=== PATIENT | female | born 1970 | race Caucasian/White ===

== ENCOUNTER 2016-12-20 09:32 | Emergency (ER) | payer OTHER ==
[2016-12-20] MEDS ORDERED: Ondansetron INJ* 2 MG/ML VIAL IV ONE (10:11)
[2016-12-20] MEDS ORDERED: Morphine INJ* 4 MG/ML 1 ML SYRINGE IV ONE (10:11)
[2016-12-20] MEDS ORDERED: Ketorolac INJ* 30 MG/ML 1 ML VIAL IV PUSH ONE (10:11)
[2016-12-20] MEDS: NS 0.9% 1000 ML* 2,000 ML IV ONE (10:55)
--- NOTE | 2016-12-20 10:59 | RAD ---
Indication: Right flank pain, diarrhea. CT of the abdomen and pelvis was performed without oral or IV contrast administration. Coronal and sagittal reconstructed images were obtained. Lung bases demonstrate no pleural fluid, nodules or masses. Heart demonstrates no pericardial effusion. The liver is normal in size. No focal lesions or intrahepatic ductal dilatation is noted. The gallbladder demonstrates no calcified gallstones. No pericholecystic fluid or wall thickening is identified. The spleen is normal in size. The pancreas demonstrates no mass or pancreatic ductal dilatation. The common duct is not dilated. No adrenal masses are noted. The kidneys demonstrate no evidence of hydronephrosis or hydroureter. In the right true pelvis there is a calcification which is felt to represent phleboliths and is adjacent to the distal ureter. The urinary bladder is otherwise unremarkable. CT of the pelvis demonstrates aorta and inferior vena cava to be unremarkable with no aneurysmal dilatation. Uterus and ovaries are grossly unremarkable. The urinary bladder is unremarkable. Diverticulosis without definite evidence of diverticulitis is noted. The appendix is visualized and is of normal caliber. Small bowel demonstrates no abnormal dilatation. IMPRESSION: NO EVIDENCE OF OBSTRUCTIVE UROPATHY IS NOTED. THERE IS LIKELY A PHLEBOLITH ADJACENT TO THE URETER DEEP IN THE PELVIS JUST ABOVE THE RIGHT URETEROVESICULAR JUNCTION. NORMAL APPENDIX. NO OTHER MASSES OR FLUID COLLECTIONS ARE IDENTIFIED.
[2016-12-20 11:14] LABS: Hematocrit 40 % (35-47); Hemoglobin 12.9 g/dl (12.0-16.0); Mean Corpuscular HGB Conc 33 g/dl (31-36); Mean Corpuscular Hemoglobin 30 pg (27-31); Mean Corpuscular Volume 91 fL (80-97); Mean Platelet Volume 10 um3 (7.4-10.4); Red Blood Count 4.37 10^6/ul (4.0-5.4); Red Cell Distribution Width 14 % (10.5-15); White Blood Count 12.3 10^3/ul (3.5-10.8)
[2016-12-20 11:34] LABS: Albumin 4.1 g/dL (3.2-5.2); BUN/Creatinine Ratio 10.9 (8-20); C Reactive Protein 2.7 mg/L (< 5.00); Calcium 9.4 mg/dL (8.6-10.3); EGFR African American 83.8 (>60); EGFR Non-African American 65.2 (>60); Globulin 3.1 g/dL (2-4); Potassium 4.1 mmol/L (3.5-5.0); Total Bilirubin 1.9 mg/dL (0.2-1.0); Total Protein 7.2 g/dL (6.4-8.9)
[2016-12-20 11:50] LABS: Urine Bilirubin Negative (Negative); Urine Glucose Negative (Negative); Urine Nitrite Negative (Negative)
[2016-12-20 14:40] VITALS: BP 116/57
--- NOTE | 2016-12-21 23:02 | ED ---
Nenita Alcala SooYoung, scribed for Yuval Smyth MD on 12/20/16 at 1011 . Back Pain - HPI Summary HPI Summary: A 46 y/o F presents to ED with worsening R flank pain onset two days ago. Associated sx: hematuria, watery diarrhea, weakness, dizzy/lightheaded. Denies fever, chills, vomiting. Pain was initially intermittent but has been constant for past two days, described as "twinging." Pt notes she went camping last week , and has been feeling sore since. Denies drinking untreated water. Pert PMHx: urolithiasis, kidney infections, c diff. Pt denies c. diff odor. No recent ABX. PCP is Dr. Johns. SHx: L knee, heart catherization. - History of Current Complaint Chief Complaint: EDFlankPain Stated Complaint: RIGHT FLANK PAIN Time Seen by Provider: 12/20/16 09:38 Hx Obtained From: Patient Hx Last Menstrual Period: just finished 2 days Onset/Duration: Lasting Days - two days ago, Still Present Timing: Constant Back Pain Location: Is Discrete @ - R flank Severity Initially: Moderate Severity Currently: Moderate Pain Intensity: 6 Pain Scale Used: 0-10 Numeric Associated Signs And Symptoms: Positive: Weakness, Other - pos: hematuria, diarrhea, dizziness - Allergies/Home Medications Allergies/Adverse Reactions: Allergies Allergy/AdvReac Type Severity Reaction Status Date / Time Atorvastatin [From Lipitor] Allergy Intermediate heart race Verified 11/08/15 11 :32 Clindamycin Allergy Diarrhea, Verified 11/08/15 11:32 c-diff Shellfish Allergy Allergy Difficulty Verified 11/08/15 11:32 Breathing/Wheezing Iodinated Contrast Media AdvReac Rash And Verified 11/08/15 11:32 [CONTRAST DYE] Itching Statins AdvReac Muscle Ache Verified 11/08/15 11:32 PMH/Surg Hx/FS Hx/Imm Hx Previously Healthy: No Endocrine/Hematology History: Denies: Hx Diabetes Cardiovascular History: Reports: Hx Hypercholesterolemia, Hx Hypertension Denies: Hx Congestive Heart Failure Comment Only: Other Cardiovascular Problems/Disorders - HX OF HEART CATH X 2 YRS AGO Respiratory History: Reports: Hx Asthma, Hx Chronic Bronchitis, Other Respiratory Problems/Disorders - History of Pleurisy GI History: Reports: Hx Gastroesophageal Reflux Disease History: Reports: Hx Kidney Stones Denies: Hx Renal Disease Musculoskeletal History: Reports: Hx Back Problems, Other Musculoskeletal History - bilateral knee pain Neurological History: Reports: Hx Migraine Psychiatric History: Reports: Hx Post Traumatic Stress Disorder Denies: Hx Eating Disorder, Hx of Violent Episodes Against Others - Surgical History Surgery Procedure, Year, and Place: Left Knee Surgery 2002'; Full mouth teeth extraction. HEART CATH - Immunization History Date of Tetanus Vaccine: unable to obtain Infectious Disease History: Reports: Hx Clostridium Difficile Denies: Traveled Outside the [place] in Last 30 Days - Family History Known Family History: Positive: Other - pos: anxiety, schizophrenia; neg: breast CA - Social History Occupation: Unemployed Lives: Alone Alcohol Use: Rare Substance Use Type: Reports: Prescribed Smoking Status (MU): Never Smoked Tobacco Review of Systems Negative: Fever, Chills Negative: Erythema Negative: Sore Throat Negative: Chest Pain Negative: Shortness Of Breath, Cough Positive: Diarrhea. Negative: Abdominal Pain, Vomiting, Nausea Positive: flank pain - R, hematuria. Negative: dysuria Negative: Myalgia, Edema Negative: Rash Neurological: Other - pos: dizziness, lightheadedness Positive: Weakness All Other Systems Reviewed And Are Negative: Yes Physical Exam - Summary Physical Exam Summary: Constitutional: Well-developed, Well-nourished, Alert. (-) Distressed Skin: Warm, Dry HENT: Normocephalic; Atraumatic Eyes: Conjunctiva normal Neck: Musculoskeletal ROM normal neck. (-) JVD, (-) Stridor, (-) Tracheal deviation Cardio: Rhythm regular, rate normal, Heart sounds normal; Intact distal pulses; The pedal pulses are 2+ and symmetric. Radial pulses are 2+ and symmetric. (-) Murmur Pulmonary/Chest wall: Effort normal. (-) Respiratory distress, (-) Wheezes, (-) Rales Abd: Soft, (-) Distension, R CVA TENDERNESS, RLQ TENDERNESS Musculoskeletal: (-) Edema Lymph: (-) Cervical adenopathy Neuro: Alert, Oriented x3 Psych: Mood and affect Normal Triage Information Reviewed: Yes Vital Signs On Initial Exam: Initial Vitals Temp Pulse Resp BP Pulse Ox 96.8 F 59 18 132/80 100 12/20/16 09:33 12/20/16 09:33 12/20/16 09:33 12/20/16 09:33 12/20/16 09:33 Vital Signs Reviewed: Yes Diagnostics - Vital Signs Vital Signs Temp Pulse Resp BP Pulse Ox 12/20/16 09:33 96.8 F 59 18 132/80 100 - Laboratory Result Diagrams: 12/20/16 10:53 12/20/16 10:53 Lab Statement: Any lab studies that have been ordered have been reviewed, and results considered in the medical decision making process. - CT A/P CT CT Interpretation: Positive (See Comments) - IMPRESSION: NO EVIDENCE OF OBSTRUCTIVE UROPATHY IS NOTED. THERE IS LIKELY A PHLEBOLITH ADJACENT TO THE URETER DEEP IN THE PELVIS JUST ABOVE THE RIGHT URETEROVESICULAR JUNCTION. NORMAL APPENDIX. NO OTHER MASSES OR FLUID COLLECTIONS ARE IDENTIFIED. CT Interpretation Completed By: Radiologist Re-Evaluation - Re-Evaluation 1 Re-Evaluation Time: 13:56 Change: Improved Comment: Discussing results with pt. Pt still has mild tenderness to RLQ. Will PO challenge before D/C. Back Pain Course/Dx - Course Course Of Treatment: Pt is a 46 y/o F presenting with worsening R flank pain onset two days ago. Associated sx: hematuria, watery diarrhea, weakness, dizzy/ lightheaded. Denies fever, chills, vomiting. Pain was initially intermittent but has been constant for past two days, described as "twinging." Pert PMHx: kidney stones, kidney infections, c diff. Pt denies c. diff odor. Pt given fluids, Toradol, Zofran, morphine in ED. Labs results are WNL except for elevated WBCs and Total Bilirubin. UA results are WNL with specific gravity of 1.005. A/P CT shows "NO EVIDENCE OF OBSTRUCTIVE UROPATHY IS NOTED. THERE IS LIKELY A PHLEBOLITH ADJACENT TO THE URETER DEEP IN THE PELVIS JUST ABOVE THE RIGHT URETEROVESICULAR JUNCTION. NORMAL APPENDIX. NO OTHER MASSES OR FLUID COLLECTIONS ARE IDENTIFIED.". No signs of urologic obstruction. Pt tolerated PO challenge. Will D/C home with tramadol. - Diagnoses Differential Diagnosis/HQI/PQRI: Positive: Other - kidney stone vs. pain from viral diarrhea, possibly muscle strain Provider Diagnoses: Diarrhea, Right flank pain Discharge - Discharge Plan Condition: Stable Disposition: HOME Prescriptions: traMADol TAB* [Ultram*] 25 mg PO Q6HR PRN #12 tab MDD 4 PRN Reason: Pain - Moderate To Severe Patient Education Materials: Flank Pain (ED), Acute Diarrhea (ED), Tramadol ( By mouth) Referrals: Radhika Johns MD [Primary Care Provider] - 3 Days (Follow up with your primary care provider within the next few days.) Additional Instructions: Follow up with your primary care provider within the next few days. Return to the emergency department for changing or worsening or persistent symptoms The documentation as recorded by the Nenita ramirez SooYoung accurately reflects the service I personally performed and the decisions made by , Yuval Smyth MD.
== END 2016-12-20 14:39 | disposition home or self-care (01) ==
LOC: ED 09:32
DX: R10.84 Generalized abdominal pain (principal); R53.1 Weakness; R31.9 Hematuria, unspecified; R19.7 Diarrhea, unspecified; R42 Dizziness and giddiness
CPT/HCPCS: 36415; 74176; 80053; 81003; 83605; 83690; 85025; 86140; 96374; 96375; 99283; J1885; J2270; J2405

== ENCOUNTER 2017-06-07 11:29 | Emergency (ER) | payer OTHER ==
[2017-06-07] MEDS ORDERED: NS 0.9% 1000 ML* 1,000 ML IV ONE (12:39)
[2017-06-07 13:19] LABS: Hematocrit 38 % (35-47); Mean Corpuscular HGB Conc 34 g/dl (31-36); Mean Corpuscular Hemoglobin 31 pg (27-31); Mean Corpuscular Volume 90 fL (80-97); Mean Platelet Volume 9 um3 (7.4-10.4); Red Blood Count 4.22 10^6/ul (4.0-5.4); Red Cell Distribution Width 14 % (10.5-15); White Blood Count 12.7 10^3/ul (3.5-10.8)
[2017-06-07 13:35] LABS: BUN/Creatinine Ratio 14.8 (8-20); Calcium 9.6 mg/dL (8.6-10.3); EGFR African American 88.2 (>60); EGFR Non-African American 68.6 (>60); Globulin 2.7 g/dL (2-4); Potassium 4.1 mmol/L (3.5-5.0); Total Bilirubin 0.9 mg/dL (0.2-1.0); Total Protein 6.7 g/dL (6.4-8.9)
--- NOTE | 2017-06-07 13:35 | RAD ---
Indication: Chest pain. 2 views of the chest including dual energy PA views demonstrate no mediastinal shift. Heart is of normal size and configuration. Lung portillo demonstrate no pleural fluid, pneumonia or pneumothorax. IMPRESSION: No active cardiopulmonary disease is noted.
[2017-06-07 14:18] LABS: TSH (Thyroid Stimulating Horm) 2.33 mcIU/mL (0.34-5.60)
[2017-06-07 15:16] LABS: Urine Bacteria 1+ (Absent); Urine Bilirubin Negative (Negative); Urine Glucose Negative (Negative); Urine Nitrite Positive (Negative)
[2017-06-07 15:55] VITALS: BP 132/78
--- NOTE | 2017-06-09 08:06 | ED ---
Krzysztof Alcala Angela, scribed for Edwardo Saha MD on 06/07/17 at 1243 . HPI Chest Pain - HPI Summary HPI Summary: This pt is a 46 y/o female presenting to [facility] c/o chest pain that began last night. She reports some SOB and productive cough. Pt states she was recently diagnosed with bronchitis. Pt additionally notes her blood pressure was elevated last night. She is on anti-hypertensive medications. She denies nausea , vomiting, fever (today). PMHx includes heat cath (2 years ago), asthma, chronic bronchitis, GERD. - History of Current Complaint Chief Complaint: EDChestWallPain Time Seen by Provider: 06/07/17 11:41 Hx Obtained From: Patient Hx Last Menstrual Period: just finished 2 days Onset/Duration: Started Hours Ago, Still Present Timing: Lasting Hours Current Severity: Moderate Pain Intensity: 5 Pain Scale Used: 0-10 Numeric Chest Pain Location: Diffuse Chest Pain Radiates: No Character: Cough, Productive Associated Signs and Symptoms: Positive: Chest Pain, Shortness of Breath, Cough - Allergy/Home Medications Allergies/Adverse Reactions: Allergies Allergy/AdvReac Type Severity Reaction Status Date / Time Atorvastatin [From Lipitor] Allergy Intermediate heart race Verified 06/07/17 11 :32 Clindamycin Allergy Diarrhea, Verified 06/07/17 11:32 c-diff Shellfish Allergy Allergy Difficulty Verified 06/07/17 11:32 Breathing/Wheezing Iodinated Contrast Media AdvReac Rash And Verified 06/07/17 11:32 [CONTRAST DYE] Itching Statins AdvReac Muscle Ache Verified 06/07/17 11:32 Home Medications: Home Medications Cholecalciferol [Vitamin D3 Gummies] 2,000 unit PO DAILY 06/07/17 [History Confirmed 06/07/17] Levothyroxine TAB* [Synthroid TAB*] 50 mcg PO QAM 06/07/17 [History Confirmed ] PMH/Surg Hx/FS Hx/Imm Hx Endocrine/Hematology History: Denies: Hx Diabetes Cardiovascular History: Reports: Hx Hypercholesterolemia, Hx Hypertension Denies: Hx Congestive Heart Failure Comment Only: Other Cardiovascular Problems/Disorders - HX OF HEART CATH X 2 YRS AGO Respiratory History: Reports: Hx Asthma, Hx Chronic Bronchitis, Other Respiratory Problems/Disorders - History of Pleurisy GI History: Reports: Hx Gastroesophageal Reflux Disease History: Reports: Hx Kidney Stones Denies: Hx Renal Disease Musculoskeletal History: Reports: Hx Back Problems, Other Musculoskeletal History - bilateral knee pain Neurological History: Reports: Hx Migraine Psychiatric History: Reports: Hx Post Traumatic Stress Disorder Denies: Hx Eating Disorder, Hx of Violent Episodes Against Others - Surgical History Surgery Procedure, Year, and Place: Left Knee Surgery 2002'; Full mouth teeth extraction. HEART CATH - Immunization History Date of Tetanus Vaccine: unable to obtain Infectious Disease History: No Infectious Disease History: Reports: Hx Clostridium Difficile Denies: Traveled Outside the [place] in Last 30 Days - Family History Known Family History: Positive: Other - pos: anxiety, schizophrenia; neg: breast CA - Social History Alcohol Use: Rare Substance Use Type: Reports: Prescribed Substance Use Comment - Amount & Last Used: states eats food with hemp in it Smoking Status (MU): Never Smoked Tobacco Review of Systems Constitutional: Other - elevated BP last night Negative: Fever, Chills Eyes: Negative Positive: Chest Pain Positive: Shortness Of Breath, Cough Negative: Vomiting, Nausea Musculoskeletal: Negative Skin: Negative Neurological: Negative All Other Systems Reviewed And Are Negative: Yes Physical Exam - Summary Physical Exam Summary: VITAL SIGNS: Reviewed. GENERAL: Patient is a well-developed and nourished female who is lying comfortable in the stretcher. Patient is not in any acute respiratory distress. HEAD AND FACE: No signs of trauma. No ecchymosis, hematomas or skull depressions. No sinus tenderness. EYES: PERRLA, EOMI x 2, No injected conjunctiva, no nystagmus. EARS: Hearing grossly intact. Ear canals and tympanic membranes are within normal limits. MOUTH: Oropharynx within normal limits. Pt has dry mouth. NECK: Supple, trachea is midline, no adenopathy, no JVD, no carotid bruit, no c- spine tenderness, neck with full ROM. CHEST: Symmetric, no tenderness at palpation LUNGS: Some coarse breath sounds bilaterally. CVS: Regular rate and rhythm, S1 and S2 present, no murmurs or gallops appreciated. ABDOMEN: Soft, non-tender. No signs of distention. No rebound no guarding, and no masses palpated. Bowel sounds are normal. EXTREMITIES: FROM in all major joints, no edema, no cyanosis or clubbing. NEURO: Alert and oriented x 3. No acute neurological deficits. Speech is normal and follows commands. SKIN: Dry and warm Triage Information Reviewed: Yes Vital Signs On Initial Exam: Initial Vitals Temp Pulse Resp BP Pulse Ox 96.6 F 58 20 147/85 100 06/07/17 11:32 06/07/17 11:32 06/07/17 11:32 06/07/17 11:32 06/07/17 11:32 Vital Signs Reviewed: Yes Diagnostics - Vital Signs Vital Signs Temp Pulse Resp BP Pulse Ox 06/07/17 11:32 96.6 F 58 20 147/85 100 - Laboratory Lab Results: Lab Results 06/07/17 06/07/17 06/07/17 Range/Units 13:10 13:10 13:10 WBC 12.7 H (3.5-10.8) 10^3/ul RBC 4.22 (4.0-5.4) 10^6/ul Hgb 13.0 (12.0-16.0) g/dl Hct 38 (35-47) % MCV 90 (80-97) fL MCH 31 (27-31) pg MCHC 34 (31-36) g/dl RDW 14 (10.5-15) % Plt Count 292 (150-450) 10^3/ul MPV 9 (7.4-10.4) um3 Neut % (Auto) 64.3 (38-83) % Lymph % (Auto) 24.9 L (25-47) % Arthur % (Auto) 6.6 (1-9) % Eos % (Auto) 3.3 (0-6) % Baso % (Auto) 0.9 (0-2) % Absolute Neuts (auto) 8.2 H (1.5-7.7) 10^3/ul Absolute Lymphs (auto) 3.2 (1.0-4.8) 10^3/ul Absolute Monos (auto) 0.8 (0-0.8) 10^3/ul Absolute Eos (auto) 0.4 (0-0.6) 10^3/ul Absolute Basos (auto) 0.1 (0-0.2) 10^3/ul Absolute Nucleated RBC 0 10^3/ul Nucleated RBC % 0 Sodium 136 (133-145) mmol/L Potassium 4.1 (3.5-5.0) mmol/L Chloride 105 (101-111) mmol/L Carbon Dioxide 26 (22-32) mmol/L Anion Gap 5 (2-11) mmol/L BUN 13 (6-24) mg/dL Creatinine 0.88 (0.51-0.95) mg/dL Est GFR ( Amer) 88.2 (>60) Est GFR (Non-Af Amer) 68.6 (>60) BUN/Creatinine Ratio 14.8 (8-20) Glucose 104 H (70-100) mg/dL Calcium 9.6 (8.6-10.3) mg/dL Total Bilirubin 0.90 (0.2-1.0) mg/dL AST 17 (13-39) U/L ALT 23 (7-52) U/L Alkaline Phosphatase 48 (34-104) U/L Troponin I 0.00 (<0.04) ng/mL B-Natriuretic Peptide 65 ( - 100) pg/mL Total Protein 6.7 (6.4-8.9) g/dL Albumin 4.0 (3.2-5.2) g/dL Globulin 2.7 (2-4) g/dL Albumin/Globulin Ratio 1.5 (1-3) TSH 2.33 (0.34-5.60) mcIU/mL Urine Color Urine Appearance Urine pH (5-9) Ur Specific [place] (1.010-1.030) Urine Protein (Negative) Urine Ketones (Negative) Urine Blood (Negative) Urine Nitrate (Negative) Urine Bilirubin (Negative) Urine Urobilinogen (Negative) Ur Leukocyte Esterase (Negative) Urine WBC (Auto) (Absent) Urine RBC (Auto) (Absent) Ur Squamous Epith Cells (Absent) Urine Bacteria (Absent) Urine Glucose (Negative) Influenza A (Rapid) (Negative) Influenza B (Rapid) (Negative) 06/07/17 06/07/17 06/07/17 Range/Units 14:58 15:00 15:03 WBC (3.5-10.8) 10^3/ul RBC (4.0-5.4) 10^6/ul Hgb (12.0-16.0) g/dl Hct (35-47) % MCV (80-97) fL MCH (27-31) pg MCHC (31-36) g/dl RDW (10.5-15) % Plt Count (150-450) 10^3/ul MPV (7.4-10.4) um3 Neut % (Auto) (38-83) % Lymph % (Auto) (25-47) % Arthur % (Auto) (1-9) % Eos % (Auto) (0-6) % Baso % (Auto) (0-2) % Absolute Neuts (auto) (1.5-7.7) 10^3/ul Absolute Lymphs (auto) (1.0-4.8) 10^3/ul Absolute Monos (auto) (0-0.8) 10^3/ul Absolute Eos (auto) (0-0.6) 10^3/ul Absolute Basos (auto) (0-0.2) 10^3/ul Absolute Nucleated RBC 10^3/ul Nucleated RBC % Sodium (133-145) mmol/L Potassium (3.5-5.0) mmol/L Chloride (101-111) mmol/L Carbon Dioxide (22-32) mmol/L Anion Gap (2-11) mmol/L BUN (6-24) mg/dL Creatinine (0.51-0.95) mg/dL Est GFR ( Amer) (>60) Est GFR (Non-Af Amer) (>60) BUN/Creatinine Ratio (8-20) Glucose (70-100) mg/dL Calcium (8.6-10.3) mg/dL Total Bilirubin (0.2-1.0) mg/dL AST (13-39) U/L ALT (7-52) U/L Alkaline Phosphatase (34-104) U/L Troponin I 0.00 (<0.04) ng/mL B-Natriuretic Peptide ( - 100) pg/mL Total Protein (6.4-8.9) g/dL Albumin (3.2-5.2) g/dL Globulin (2-4) g/dL Albumin/Globulin Ratio (1-3) TSH (0.34-5.60) mcIU/mL Urine Color Yellow Urine Appearance Clear Urine pH 5.0 (5-9) Ur Specific [place] 1.010 (1.010-1.030) Urine Protein Negative (Negative) Urine Ketones Trace H (Negative) Urine Blood Negative (Negative) Urine Nitrate Positive H (Negative) Urine Bilirubin Negative (Negative) Urine Urobilinogen Negative (Negative) Ur Leukocyte Esterase Trace H (Negative) Urine WBC (Auto) Trace(0-5/hpf) (Absent) Urine RBC (Auto) Trace(0-2/hpf) (Absent) Ur Squamous Epith Cells Present H (Absent) Urine Bacteria 1+ H (Absent) Urine Glucose Negative (Negative) Influenza A (Rapid) Negative (Negative) Influenza B (Rapid) Negative (Negative) Result Diagrams: 06/07/17 13:10 06/07/17 13:10 Lab Statement: Any lab studies that have been ordered have been reviewed, and results considered in the medical decision making process. - Radiology Chest XR Xray Interpretation: No Acute Changes - IMPRESSION: No active cardiopulmonary disease is noted. ED physician has reviewed this radiology report and agrees. Radiology Interpretation Completed By: Radiologist - EKG 1139 Cardiac Rate: Bradycardia EKG Rhythm: Sinus Rhythm - at 57 bpm EKG Interpretation: No ST elevation EKG Comparison: No Significant Change - similar to previous EKG done on . Chest Pain Course/Dx - Course Assessment/Plan: This pt is a 46 y/o female presenting to [facility] c/o chest pain that began last night. She reports some SOB and productive cough. Pt states she was recently diagnosed with bronchitis. Pt additionally notes her blood pressure was elevated last night. She is on anti-hypertensive medications. She denies nausea, vomiting, fever (today). PMHx includes heat cath (2 years ago), asthma, chronic bronchitis, GERD. Test results without any significant abnormalities except for WBC of 12.7. Urinalysis is positive for a UTI. Chest XR shows no active cardiopulmonary disease is noted. In the ED course the pt was given IV fluids and her symptoms improved. She will be discharged home with prescription for Ciprofloxacin and will follow up from her PCP. Pt is hemodynamically stable, alert and oriented x3. - Chest Pain Differential Diagnosis/HQI/PQRI: Acute MO, Angina, CHF, Chest Wall, GI Disease, Lower Respiratory Infection - Diagnoses Provider Diagnoses: Atypical chest pain Discharge - Discharge Plan Condition: Stable Disposition: HOME Prescriptions: Ciprofloxacin TAB* [Cipro 500 MG TAB*] 500 mg PO BID #6 tab Patient Education Materials: Chest Pain (ED), Urinary Tract Infection in Women (ED) Referrals: Radhika Johns MD [Primary Care Provider] - Additional Instructions: Please follow up with your primary care provider. RETURN TO THE ED FOR ANY WORSENING OR NEW SYMPTOMS. The documentation as recorded by the Krzysztof ramirez Angela accurately reflects the service I personally performed and the decisions made by me, Edwardo Saha MD.
--- NOTE | 2017-06-10 08:35 | ED ---
Progress - Progress Note Progress Note: Pt's urine cx reveals e. coli >100,000 which is sens to cipro - pt was d/c'd on cipro - no change at this time. Course/Dx - Diagnoses Provider Diagnoses: Atypical chest pain
== END 2017-06-07 15:55 | disposition home or self-care (01) ==
LOC: ED 11:29
DX: R07.89 Other chest pain (principal)
CPT/HCPCS: 36415; 71020; 80053; 81003; 81015; 83880; 84443; 84484; 85025; 87077; 87086; 87186; 87502; 93005; 99282

== ENCOUNTER 2017-07-30 17:35 | Emergency (ER) | payer OTHER ==
[2017-07-30] MEDS ORDERED: Tetan/Diph/Pertus SYR(Tdap)* 0.5 ML SYR(BOOSTRIX) use SYR IM ONE (18:53)
--- NOTE | 2017-07-30 18:53 | ED ---
Laceration/Wound HPI - HPI Summary HPI Summary: 38-year-old female presents with right thigh laceration today. she states she was using a saw and it slipped and hit her right thigh. there is no active bleeding in the area. She states she doesn't know last tetanus was. She placed a bandage on the area. She denies any other injury. Denies any foreign body in the wound. She denies any pain currently. - History of Current Complaint Stated Complaint: RT LEG LACERATION Time Seen by Provider: 07/30/17 17:58 Hx Last Menstrual Period: just finished 2 days Pain Intensity: 2 - Allergy/Home Medications Allergies/Adverse Reactions: Allergies Allergy/AdvReac Type Severity Reaction Status Date / Time Atorvastatin [From Lipitor] Allergy Intermediate heart race Verified 06/07/17 11 :32 Clindamycin Allergy Diarrhea, Verified 06/07/17 11:32 c-diff Shellfish Allergy Allergy Difficulty Verified 06/07/17 11:32 Breathing/Wheezing Iodinated Contrast Media AdvReac Rash And Verified 06/07/17 11:32 [CONTRAST DYE] Itching Statins AdvReac Muscle Ache Verified 06/07/17 11:32 PMH/Surg Hx/FS Hx/Imm Hx Endocrine/Hematology History: Denies: Hx Diabetes Cardiovascular History: Reports: Hx Hypercholesterolemia, Hx Hypertension Denies: Hx Congestive Heart Failure Comment Only: Other Cardiovascular Problems/Disorders - HX OF HEART CATH X 2 YRS AGO Respiratory History: Reports: Hx Asthma, Hx Chronic Bronchitis, Other Respiratory Problems/Disorders - History of Pleurisy GI History: Reports: Hx Gastroesophageal Reflux Disease History: Reports: Hx Kidney Stones Denies: Hx Renal Disease Musculoskeletal History: Reports: Hx Back Problems, Other Musculoskeletal History - bilateral knee pain Neurological History: Reports: Hx Migraine Psychiatric History: Reports: Hx Post Traumatic Stress Disorder Denies: Hx Eating Disorder, Hx of Violent Episodes Against Others - Surgical History Surgery Procedure, Year, and Place: Left Knee Surgery 2002'; Full mouth teeth extraction. HEART CATH - Immunization History Date of Tetanus Vaccine: unable to obtain Infectious Disease History: No Infectious Disease History: Reports: Hx Clostridium Difficile Denies: Traveled Outside the [place] in Last 30 Days - Family History Known Family History: Positive: Other - pos: anxiety, schizophrenia; neg: breast CA - Social History Alcohol Use: Rare Substance Use Type: Reports: None, Prescribed Substance Use Comment - Amount & Last Used: states eats food with hemp in it Smoking Status (MU): Never Smoked Tobacco Review of Systems Negative: Fever Negative: Chest Pain Negative: Shortness Of Breath Positive: Other - right thigh laceration All Other Systems Reviewed And Are Negative: Yes Physical Exam Triage Information Reviewed: Yes Vital Signs On Initial Exam: Initial Vitals Temp Pulse Resp BP Pulse Ox 96.9 F 67 17 148/83 99 07/30/17 17:47 07/30/17 17:47 07/30/17 17:47 07/30/17 17:47 07/30/17 17:47 Vital Signs Reviewed: Yes Appearance: Positive: Well-Appearing Skin: Positive: Warm, Dry, Other - 1cm superficial laceration on right thigh Head/Face: Positive: Normal Head/Face Inspection Eyes: Positive: Normal, Conjunctiva Clear Respiratory/Lung Sounds: Positive: Clear to Auscultation, Breath Sounds Present Cardiovascular: Positive: Normal, RRR Musculoskeletal: Positive: Strength/ROM Intact - right leg, Other - good pulses , sensation grossly intact Neurological: Positive: Normal Psychiatric: Positive: Normal Procedures - Laceration/Wound Repair 1 Location: Other - right thigh Description: Linear Length, Depth and Shape: 1cm superficial Irrigated w/ Saline (ccs): 40 Laceration/Wound Explored: clean, no foreign body removed Closure: Skin Adhesive, SteriStrips Diagnostics - Vital Signs Vital Signs Temp Pulse Resp BP Pulse Ox 07/30/17 17:47 96.9 F 67 17 148/83 99 - Laboratory Lab Statement: Any lab studies that have been ordered have been reviewed, and results considered in the medical decision making process. Laceration Repair Course/Dx - Course Course Of Treatment: 38-year-old female presents with right thigh laceration today. she states she was using a saw and it slipped and hit her right thigh. there is no active bleeding in the area. She states she doesn't know last tetanus was. She placed a bandage on the area. She denies any other injury. Denies any foreign body in the wound. She denies any pain currently. on exam has 1cm superficial laceration that placed glue and steri strip. gave tetanus. patient understand and agrees with plan. - Differential Dx Differental Diagnoses: Abrasion, Avulsion, Laceration - Clinical Impression Provider Diagnoses: Laceration of right thigh Discharge - Discharge Plan Condition: Good Disposition: HOME Patient Education Materials: Skin Adhesive Care (ED) Referrals: Radhika Johns MD [Primary Care Provider] - Additional Instructions: Place ice on area Take Tylenol for pain as needed every 6 hours Keep dry for 24 hours Glue will fall off on own Avoid scrubbing area Use sunscreen on area after laceration has healed Return to ED if develop any signs of infection or any new or worsening symptoms
[2017-07-30 19:12] VITALS: BP 135/83
== END 2017-07-30 19:11 | disposition home or self-care (01) ==
LOC: ED 17:35
DX: S71.111A Laceration without foreign body, right thigh, initial encounter (principal); W26.8XXA Contact with other sharp object(s), not elsewhere classified, initial encounter; Y92.9 Unspecified place or not applicable; Z23 Encounter for immunization; Z88.8 Allergy status to other drugs, medicaments and biological substances; Z88.3 Allergy status to other anti-infective agents; Z91.041 Radiographic dye allergy status
CPT/HCPCS: 12001; 90471; 90715; 99282

== ENCOUNTER 2018-04-03 14:11 | Emergency (ER) | payer OTHER ==
[2018-04-03 14:45] VITALS: BP 130/78
--- NOTE | 2018-04-03 16:45 | UC ---
Ear Complaint HPI - HPI Summary HPI Summary: 47 y/o female presents to the urgent care c/o pt c/o rt ear pain, this started 3 days ago. pt has been treating it as an allergy issue and is not responding. pt states she has also developed a cough off and on for 1 week. - History of Current Complaint Chief Complaint: UCEar Stated Complaint: EAR PAIN Time Seen by Provider: 04/03/18 15:49 Hx Obtained From: Patient Hx Last Menstrual Period: just finished 2 days Pain Intensity: 5 - Allergies/Home Medications Allergies/Adverse Reactions: Allergies Allergy/AdvReac Type Severity Reaction Status Date / Time atorvastatin [From Lipitor] Allergy Tachycardia Verified 04/03/18 14:46 clindamycin Allergy Diarrhea Verified 04/03/18 14:46 Iodinated Contrast- Oral and Allergy Rash And Verified 04/03/18 14:46 IV Dye Itching shellfish derived Allergy Difficulty Verified 04/03/18 14:46 Breathing Qhxypfs-Vva-Hnt Reductase Allergy Muscle Ache Verified 04/03/18 14:46 Inhibitor Home Medications: Home Medications Allopurinol TAB* [Zyloprim 100 MG TAB*] 100 mg PO DAILY 04/03/18 [History Confirmed 04/03/18] Fluticasone NASAL SPRAY 50MCG* [Flonase NASAL SPRAY 50MCG*] 2 spray BOTH NARES DAILY 04/03/18 [History Confirmed 04/03/18] Ibuprofen 400 mg PO 04/03/18 [History] Potassium Citrate [Urocit-K] 1,080 mg PO 04/03/18 [History] hydroCHLOROthiazide [Hydrochlorothiazide] 12.5 mg PO 04/03/18 [History] PMH/Surg Hx/FS Hx/Imm Hx - Surgical History Surgical History: Yes Surgery Procedure, Year, and Place: Left Knee Surgery 2002'; Full mouth teeth extraction. 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 2- Otalgia Discharge - Sign-Out/Discharge Documenting (check all that apply): Patient Departure All imaging exams completed and their final reports reviewed: No Studies - Discharge Plan Condition: Stable Disposition: HOME Prescriptions: Neomyc/Polym/HC 1% OTIC SUSP* [Cortisporin Otic Susp 1%*] 4 drop RIGHT EAR QID # 1 btl Patient Education Materials: Otitis Externa (ED) Referrals: Radhika Johns MD [Primary Care Provider] - 3 Days Additional Instructions: 1-Please apply otic antibiotic on your Rt ear as directed. 2-Continue taking ibuprofen PO after meals for pain. 3-If symptoms do not improve or worsen please f/u with your PCP in 3 days or return to the urgent care for further evaluation and treatment. - Billing Disposition and Condition Condition: STABLE Disposition: Home
== END 2018-04-03 16:45 | disposition home or self-care (01) ==
LOC: UCEAST 14:11
DX: H60.501 Unspecified acute noninfective otitis externa, right ear (principal); R05 Cough; Z88.8 Allergy status to other drugs, medicaments and biological substances; Z88.1 Allergy status to other antibiotic agents; Z91.041 Radiographic dye allergy status; Z91.013 Allergy to seafood
CPT/HCPCS: 99212; G0463

== ENCOUNTER 2018-05-10 13:35 | Emergency (ER) | payer OTHER ==
[2018-05-10] MEDS ORDERED: NS 0.9% 1000 ML* 1,000 ML IV ONE (15:37)
[2018-05-10] MEDS ORDERED: Ketorolac INJ* 30 MG/ML 1 ML VIAL IV PUSH ONE (15:42)
--- NOTE | 2018-05-10 15:54 | ED ---
GI/ HPI - HPI Summary HPI Summary: Patient is a 47 y/o F w/ c/o right flank and RUQ abdominal pain onsetting last night. PMHx of kidney stones is noted, present episode feels like previous occurrences of kidney stones. Nausea endorsed, vomiting is denied. Hematuria is reported but patient notes that she is on her period. Patient took tramadol last night which alleviated pain slightly. Pain is described as a "spasm". Patient denies fever, chills, OCHOA, ear pain, sore throat, blurred vision, double vision, neck pain, CP, SOB, back pain, dysuria, blood in the stool, constipation , edema, bruising, rashes. No anxiety and depression reported. On triage, pain is rated 5/10, nothing is noted to aggravate/alleviate Sx. Home medications and allergies are reviewed. - History of Current Complaint Chief Complaint: EDFlankPain Stated Complaint: RT MARGIN ANALYST FLANK PAIN Hx Obtained From: Patient Hx Last Menstrual Period: just finished 2 days Onset/Duration: Started Days Ago - onset last night, Still Present Timing: Constant, Lasting Days - onset last night Severity: Moderate - 5/10 Current Severity: Moderate - 5/10 Pain Intensity: 5 Location of Pain: RUQ, Flank - right Pain Characteristics: Other: - spasms Associated Signs and Symptoms: Positive: Nausea, Hematuria - patient is on her period, Flank Pain - right, Abdominal Pain - right, Other: - denies OCHOA, ear pain , sore throat, blurred vision, double vision, neck pain, SOB, edema, rashes. No anxiety and depression reported.. Negative: Back Pain, Vomiting, Bruising, Constipation, Blood w/Stool, Fever, Dysuria, Chills, Chest Pain Aggravating Factor(s): Nothing Alleviating Factor(s): Medication - tramadol - Allergy/Home Medications Allergies/Adverse Reactions: Allergies Allergy/AdvReac Type Severity Reaction Status Date / Time atorvastatin [From Lipitor] Allergy Tachycardia Verified 04/03/18 14:46 clindamycin Allergy Diarrhea Verified 04/03/18 14:46 Iodinated Contrast- Oral and Allergy Rash And Verified 04/03/18 14:46 IV Dye Itching shellfish derived Allergy Difficulty Verified 04/03/18 14:46 Breathing Llvgnpp-Vdg-Ltq Reductase Allergy Muscle Ache Verified 04/03/18 14:46 Inhibitor PMH/Surg Hx/FS Hx/Imm Hx Endocrine/Hematology History: Denies: Hx Diabetes Cardiovascular History: Reports: Hx Hypercholesterolemia, Hx Hypertension Denies: Hx Congestive Heart Failure Comment Only: Other Cardiovascular Problems/Disorders - HX OF HEART CATH X 2 YRS AGO Respiratory History: Reports: Hx Asthma, Hx Chronic Bronchitis, Other Respiratory Problems/Disorders - History of Pleurisy GI History: Reports: Hx Gastroesophageal Reflux Disease History: Reports: Hx Kidney Stones Denies: Hx Renal Disease Musculoskeletal History: Reports: Hx Back Problems, Other Musculoskeletal History - bilateral knee pain Neurological History: Reports: Hx Migraine Psychiatric History: Reports: Hx Post Traumatic Stress Disorder Denies: Hx Eating Disorder, Hx of Violent Episodes Against Others - Surgical History Surgery Procedure, Year, and Place: Left Knee Surgery 2002'; Full mouth teeth extraction. HEART CATH - Immunization History Date of Tetanus Vaccine: unable to obtain Immunizations Up to Date: Yes Infectious Disease History: No Infectious Disease History: Reports: Hx Clostridium Difficile Denies: Traveled Outside the [place] in Last 30 Days - Family History Known Family History: Positive: Cardiac Disease, Hypertension, Diabetes, Other Family History: pos: anxiety, schizophrenia - Social History Alcohol Use: Rare Substance Use Type: Reports: None Substance Use Comment - Amount & Last Used: states eats food with hemp in it Smoking Status (MU): Never Smoked Tobacco Review of Systems Negative: Fever, Chills Positive: Other - NEGATIVE: double vision . Negative: Blurred Vision Negative: Sore Throat, Ear Ache Negative: Chest Pain Negative: Shortness Of Breath Positive: Abdominal Pain, Nausea. Negative: Vomiting Positive: flank pain, hematuria - patient on her period , other - NEGATIVE: blood in stool, constipation . Negative: dysuria Positive: Other - NEGATIVE: back/neck pain . Negative: Edema Negative: Rash, Bruising Negative: Headache Negative: Anxious, Depressed All Other Systems Reviewed And Are Negative: No Physical Exam - Summary Physical Exam Summary: Appearance: Alert, conversive, nontoxic appearing Skin: Warm, dry, no mottling, no rashes, no contusions HEENT: EOMI, PERRL, moist mucous membranes Neck: No masses on the neck, supple Respiratory: Clear to auscultation, breath sounds present, no rales, no rhonchi , no wheezes Cardiovascular: RRR, pulses are symmetrical in both lower and upper extremities Abdomen: Soft, RUQ tenderness Bowel Sounds: Present Musculoskeletal: Mild right CVA tenderness, no obvious deformity, moving all extremities in a grossly normal manner Neurological: A&Ox3, CN II-XII Intact, moving all extremities symmetrically Psychiatric: Normal affect and mood Triage Information Reviewed: Yes Vital Signs On Initial Exam: Initial Vitals Temp Pulse Resp BP Pulse Ox 97.8 F 60 16 130/90 98 05/10/18 13:42 05/10/18 13:42 05/10/18 13:42 05/10/18 13:42 05/10/18 13:42 Vital Signs Reviewed: Yes Diagnostics - Vital Signs Vital Signs Temp Pulse Resp BP Pulse Ox 05/10/18 13:42 97.8 F 60 16 130/90 98 - Laboratory Result Diagrams: 05/10/18 16:03 05/10/18 17:58 Lab Statement: Any lab studies that have been ordered have been reviewed, and results considered in the medical decision making process. - CT abd/pel ct CT Interpretation Completed By: Radiologist Summary of CT Findings: 1.The appendix is unremarkable. 2.Stable mild colonic diverticulosis without evidence for acutediverticulitis. 3. No visible renal, ureteral or bladder calculi. This report was reviewed by ED physician. - Ultrasound No standard instances Ultrasound Interpretation Completed By: Radiologist Summary of Ultrasound Findings: GALLBLADDER ULTRASOUND IMPRESSION: 1. NO EVIDENCE FOR GALLBLADDER DISEASE. 2. MILD HEPATOMEGALY AND HEPATIC STEATOSIS. THIS REPORT WAS REVIEWED BY ED PHYSICIAN. Re-Evaluation - Re-Evaluation First Eval Re-Evaluation Time: 18:40 Comment: Results of labs and tests were discussed with patient, she will be discharged to home and follow up with PCP. She is agreeable with this plan. GIGU Course/Dx - Course Course Of Treatment: Patient is a 47 y/o F w/ c/o right flank and RUQ abdominal pain onsetting last night. PMHx of kidney stones is noted, present episode feels like previous occurrences of kidney stones. Nausea endorsed, vomiting is denied. Hematuria is reported but patient notes that she is on her period. Patient took tramadol last night which alleviated pain slightly. Pain is described as a "spasm". On physical exam, mild right CVA tenderness is noted, RUQ tenderness also reported. During ED course, patient received fluids and toradol 30 mg IV. UA showed trace leukocyte esterase, 2+ RBC, squamous epith present, no bacteria, no glucose. Labs showed lipase 28, alk phos 31, chloride 100, sodium 134. GALLBLADDER ULTRASOUND IMPRESSION: 1. NO EVIDENCE FOR GALLBLADDER DISEASE. 2. MILD HEPATOMEGALY AND HEPATIC STEATOSIS. CT ABD/PEL IMPRESSION: 1.The appendix is unremarkable. 2.Stable mild colonic diverticulosis without evidence for acutediverticulitis. 3. No visible renal, ureteral or bladder calculi. Results of labs and tests were discussed with patient, she will be discharged to home and follow up with PCP. She is agreeable with this plan. Dx of abdominal pain - Diagnoses Provider Diagnoses: Abdominal pain Discharge - Sign-Out/Discharge Documenting (check all that apply): Patient Departure - discharge - Discharge Plan Condition: Stable Disposition: HOME Patient Education Materials: Acute Abdominal Pain (ED) Referrals: Radhika Johns MD [Primary Care Provider] - Additional Instructions: Please follow up with your primary care physician. return if worse or any new symptoms. Take all medications as previously instructed. - Billing Disposition and Condition Condition: STABLE Disposition: Home - Attestation Statements Document Initiated by Yumikoibe: Yes Documenting Scribe: Trevor Zhao Provider For Whom Ester is Documenting (Include Credential): Guerita Rasmussen MD Scribe Attestation: Trevor Alcala , scribed for Guerita Rasmussen MD on 05/11/18 at 1128. Scribe Documentation Reviewed: Yes Provider Attestation: The documentation as recorded by the Trevor ramirez accurately reflects the service I personally performed and the decisions made by me, Guerita Rasmussen MD
[2018-05-10 16:19] LABS: ABS Basophils 0.1 10^3/ul (0-0.2); ABS Eosinophils 0.4 10^3/ul (0-0.6); ABS Lymphocytes 3.3 10^3/ul (1.0-4.8); ABS Monocytes 0.7 10^3/ul (0-0.8); ABS Nucleated RBC 0 10^3/ul; Eosinophil % 3.9 % (0-6); Hematocrit 40 % (35-47); Hemoglobin 13.6 g/dl (12.0-16.0); Lymphocyte % 31.5 % (25-47); Mean Corpuscular HGB Conc 34 g/dl (31-36); Mean Corpuscular Hemoglobin 31 pg (27-31); Mean Corpuscular Volume 90 fL (80-97); Mean Platelet Volume 9.3 fL (7.4-10.4); Nucleated Red Blood Cells % 0.1; Platelet Count 365 10^3/ul (150-450); Red Blood Count 4.45 10^6/ul (4.00-5.40); Red Cell Distribution Width 14 % (10.5-15); White Blood Count 10.5 10^3/ul (3.5-10.8)
[2018-05-10 16:51] LABS: Urine Appearance Clear; Urine Blood Negative (Negative); Urine Color Colorless; Urine Ketones Negative (Negative); Urine Protein Negative (Negative); Urine Red Blood Cell 2+(6-10/hpf) (Absent); Urine Specific Gravity 1.002 (1.010-1.030); Urine Urobilinogen Negative (Negative); Urine White Blood Cell Trace(0-5/hpf) (Absent)
[2018-05-10 17:36] LABS: EGFR Non-African American 77.4 (>60)
[2018-05-10 18:55] VITALS: BP 115/76
--- NOTE | 2018-05-13 18:39 | ED ---
Progress - Progress Note Progress Note: Patient's final urine culture reveals 25-50,000 Escherichia coli. She was not started on an antibiotic as her UA was fairly unremarkable for UTI. Her symptoms however were right upper quadrant pain with right flank pain presenting as previous symptoms with kidney stones. Her CT did not reveal kidney stones nor pyelonephritis. Attempted to contact patient to update symptoms and no answer so left message call. If she still having symptoms she may benefit from antibiotic therapy given her symptoms. Organism is pansensitive. She has anbx allergy. Recommend reviewing with patient prior to prescribing as needed. Will mail letter. Sam bealrk aware. Re-Evaluation - Re-Evaluation First Eval Re-Evaluation Time: 18:40 Comment: Results of labs and tests were discussed with patient, she will be discharged to home and follow up with PCP. She is agreeable with this plan. Course/Dx - Course Course Of Treatment: Patient is a 47 y/o F w/ c/o right flank and RUQ abdominal pain onsetting last night. PMHx of kidney stones is noted, present episode feels like previous occurrences of kidney stones. Nausea endorsed, vomiting is denied. Hematuria is reported but patient notes that she is on her period. Patient took tramadol last night which alleviated pain slightly. Pain is described as a "spasm". On physical exam, mild right CVA tenderness is noted, RUQ tenderness also reported. During ED course, patient received fluids and toradol 30 mg IV. UA showed trace leukocyte esterase, 2+ RBC, squamous epith present, no bacteria, no glucose. Labs showed lipase 28, alk phos 31, chloride 100, sodium 134. GALLBLADDER ULTRASOUND IMPRESSION: 1. NO EVIDENCE FOR GALLBLADDER DISEASE. 2. MILD HEPATOMEGALY AND HEPATIC STEATOSIS. CT ABD/PEL IMPRESSION: 1.The appendix is unremarkable. 2.Stable mild colonic diverticulosis without evidence for acutediverticulitis. 3. No visible renal, ureteral or bladder calculi. Results of labs and tests were discussed with patient, she will be discharged to home and follow up with PCP. She is agreeable with this plan. Dx of abdominal pain - Diagnoses Provider Diagnoses: Abdominal pain Discharge - Sign-Out/Discharge Documenting (check all that apply): Post-Discharge Follow Up - Discharge Plan Condition: Stable Disposition: HOME Patient Education Materials: Acute Abdominal Pain (ED) Referrals: Crepet,Radhika, MD [Primary Care Provider] - Additional Instructions: Please follow up with your primary care physician. return if worse or any new symptoms. Take all medications as previously instructed. - Billing Disposition and Condition Condition: STABLE Disposition: Home
== END 2018-05-10 18:54 | disposition home or self-care (01) ==
LOC: ED 13:35
DX: R10.11 Right upper quadrant pain (principal); K57.30 Diverticulosis of large intestine without perforation or abscess without bleeding; K76.0 Fatty (change of) liver, not elsewhere classified; Z87.442 Personal history of urinary calculi; Z88.8 Allergy status to other drugs, medicaments and biological substances; Z88.1 Allergy status to other antibiotic agents; Z91.041 Radiographic dye allergy status; Z91.013 Allergy to seafood
CPT/HCPCS: 36415; 74176; 76705; 80053; 81003; 81015; 83690; 85025; 87077; 87086; 87186; 96374; 99282; J1885

== ENCOUNTER 2018-09-12 10:29 | Emergency (ER) | payer OTHER ==
[2018-09-12] MEDS ORDERED: NS 0.9% 1000 ML** 1,000 ML IV ONE (10:52)
--- NOTE | 2018-09-12 10:53 | ED ---
GI/ HPI - HPI Summary HPI Summary: Patient is a 48 y/o female who presents to the ED c/o flank pain. Last night she began to feel dehydrated and had decreased urinary output despite drinking lots of water. Patient notes her right thigh was twitching all last night. This morning she began to have intermittent right flank pain, rated a 5/10 in severity. Patient also c/o nausea and rhinorrhea, which she states are due to allergies. She denies any dysuria, hematuria, SOB, CP, vomiting, LE edema, fever , chills, rash, sore throat, or cough. Patient states she feels like she has kidney issues. In the past she has seen a urologist who told her she had a high uric acid. PMHx UTI and kidney stones. Patient takes a lot of vitamin D and potassium. - History of Current Complaint Chief Complaint: EDGeneral Time Seen by Provider: 09/12/18 10:45 Stated Complaint: FEELS SHE IS VERY DEHYDRATED PER PT Hx Obtained From: Patient Hx Last Menstrual Period: just finished 2 days Onset/Duration: Started Days Ago - Last night, Still Present Timing: Intermittent Current Severity: Moderate Pain Intensity: 5 Location of Pain: Flank - right Associated Signs and Symptoms: Positive: Nausea, Flank Pain - right. Negative: Vomiting, Fever, Hematuria, Dysuria, Chills, Cough Aggravating Factor(s): Nothing Alleviating Factor(s): Nothing - Allergy/Home Medications Allergies/Adverse Reactions: Allergies Allergy/AdvReac Type Severity Reaction Status Date / Time atorvastatin [From Lipitor] Allergy Tachycardia Verified 09/12/18 10:37 clindamycin Allergy Diarrhea Verified 09/12/18 10:37 Iodinated Contrast- Oral and Allergy Rash And Verified 09/12/18 10:37 IV Dye Itching shellfish derived Allergy Difficulty Verified 09/12/18 10:37 Breathing Jtlgqun-Mvj-Lcn Reductase Allergy Muscle Ache Verified 09/12/18 10:37 Inhibitor PMH/Surg Hx/FS Hx/Imm Hx Endocrine/Hematology History: Denies: Hx Diabetes Cardiovascular History: Reports: Hx Hypercholesterolemia, Hx Hypertension Denies: Hx Congestive Heart Failure Comment Only: Other Cardiovascular Problems/Disorders - HX OF HEART CATH X 2 YRS AGO Respiratory History: Reports: Hx Asthma, Hx Chronic Bronchitis, Other Respiratory Problems/Disorders - History of Pleurisy GI History: Reports: Hx Gastroesophageal Reflux Disease History: Reports: Hx Kidney Stones, Other Problems/Disorders - UTI Denies: Hx Renal Disease Musculoskeletal History: Reports: Hx Back Problems, Other Musculoskeletal History - bilateral knee pain Neurological History: Reports: Hx Migraine Psychiatric History: Reports: Hx Depression, Hx Post Traumatic Stress Disorder Denies: Hx Eating Disorder, Hx of Violent Episodes Against Others - Surgical History Surgery Procedure, Year, and Place: Left Knee Surgery 2002'; Full mouth teeth extraction. HEART CATH - Immunization History Date of Tetanus Vaccine: unable to obtain Infectious Disease History: No Infectious Disease History: Reports: Hx Clostridium Difficile Denies: Traveled Outside the [place] in Last 30 Days - Family History Known Family History: Positive: Cardiac Disease, Hypertension, Diabetes, Other - anxiety, schizophrenia - Social History Alcohol Use: Rare Hx Substance Use: No Substance Use Type: Reports: None Substance Use Comment - Amount & Last Used: states eats food with hemp in it Hx Tobacco Use: No Smoking Status (MU): Never Smoked Tobacco Review of Systems Positive: Other. Negative: Fever - dehydrated, Chills Positive: Nasal Discharge - due to allergies. Negative: Sore Throat Negative: Chest Pain Negative: Shortness Of Breath, Cough Positive: Nausea. Negative: Vomiting Positive: flank pain - right, other - decreased urinary output. Negative: dysuria, hematuria Positive: Other - right thigh twitching. Negative: Edema - LE Negative: Rash All Other Systems Reviewed And Are Negative: Yes Physical Exam - Summary Physical Exam Summary: Constitutional: Well-developed, Well-nourished, Alert. (-) Distressed Skin: Warm, Dry HENT: Normocephalic; Atraumatic Eyes: Conjunctiva normal Neck: Musculoskeletal ROM normal neck. (-) JVD, (-) Stridor, (-) Tracheal deviation Cardio: Rhythm regular, rate normal, Heart sounds normal; Intact distal pulses; The pedal pulses are 2+ and symmetric. Radial pulses are 2+ and symmetric. (-) Murmur Pulmonary/Chest wall: Effort normal. (-) Respiratory distress, (-) Wheezes, (-) Rales Abd: Soft, (+) RUQ tenderness, (-) Distension, (-) Guarding, (-) Rebound, (+) Right CVA tenderness Musculoskeletal: (-) Edema Lymph: (-) Cervical adenopathy Neuro: Alert, Oriented x3 Psych: Mood and affect Normal Triage Information Reviewed: Yes Vital Signs On Initial Exam: Initial Vitals Temp Pulse Resp BP Pulse Ox 97.3 F 63 18 126/87 96 09/12/18 10:32 09/12/18 10:32 09/12/18 10:32 09/12/18 10:32 09/12/18 10:32 Vital Signs Reviewed: Yes Diagnostics - Vital Signs Vital Signs Temp Pulse Resp BP Pulse Ox 09/12/18 10:32 97.3 F 63 18 126/87 96 - Laboratory Result Diagrams: 09/12/18 11:19 09/12/18 11:19 Lab Statement: Any lab studies that have been ordered have been reviewed, and results considered in the medical decision making process. - Ultrasound No standard instances Ultrasound Interpretation Completed By: Radiologist Summary of Ultrasound Findings: Gallbladder US: HEPATOMEGALY WITH FATTY INFILTRATION OF THE LIVER. ED physician reviewed radiology report. - EKG 11:05 Cardiac Rate: Bradycardia - 58 bpm EKG Rhythm: Sinus Bradycardia ST Segment: Normal Summary of EKG Findings: Normal OH, normal QRS, normal QTc, normal axis, normal T-waves, normal EKG. Re-Evaluation - Re-Evaluation First Eval Re-Evaluation Time: 14:02 Change: Worse Comment: Pt now has a headache. Second Eval Re-Evaluation Time: 14:28 Change: Improved Comment: Patient feels much better overall. She still has a headache but has a hx of chronic migraines. Patient denies any medications and would like to sleep the headache off at home. Third Eval Re-Evaluation Time: 15:00 Comment: Right leg has been twitching with pain, and Flexeril helped with this. Will give a prescription for Flexeril. GIGU Course/Dx - Course Course Of Treatment: Patient is a 48 y/o female who presents to the ED c/o right flank pain, dehydration, and had decreased urinary output since last night. A physical exam revealed RUQ and right CVA tenderness. A gallbladder US revealed HEPATOMEGALY WITH FATTY INFILTRATION OF THE LIVER. An EKG revealed bradycardia at a rate of 58 bpm. Bloodwork and UA were unremarkable. In the course patient was given Flexeril, magnesium sulfate, and fluids which improved her pain. Final dx are hypomagnesemia, dehydration, chronic abdominal pain, and migraine OCHOA. Patient is discharged, and she is agreeable with the plan. - Diagnoses Provider Diagnoses: Hypomagnesemia, Dehydration, Chronic abdominal pain, Migraine headache Discharge - Sign-Out/Discharge Documenting (check all that apply): Patient Departure - Discharge Patient Received Moderate/Deep Sedation with Procedure: No - Discharge Plan Condition: Improved Disposition: HOME Prescriptions: Cyclobenzaprine TAB* [Flexeril 10 MG TAB*] 10 mg PO TID #20 tab Patient Education Materials: Abdominal Pain (ED), Hypomagnesemia (ED) Print Language: MALTESE Referrals: Radhika Johns MD [Primary Care Provider] - - Billing Disposition and Condition Condition: IMPROVED Disposition: Home - Attestation Statements Document Initiated by Ester: Yes Documenting Scribe: Luiza aPyne Provider For Whom Ester is Documenting (Include Credential): Millie Jimenez MD Scribe Attestation: Luiza Alcala scribed for Millie Vázquez MD on 09/12/18 at 2248. Scribe Documentation Reviewed: Yes Provider Attestation: The documentation as recorded by the Luiza ramirez accurately reflects the service I personally performed and the decisions made by me, Millie Jimenez MD Status of Scribe Document: Viewed
[2018-09-12] MEDS ORDERED: Cyclobenzaprine TAB* 10 MG PO ONE (10:56)
[2018-09-12 11:35] LABS: ABS Basophils 0.1 10^3/ul (0-0.2); ABS Eosinophils 0.3 10^3/ul (0-0.6); ABS Monocytes 0.7 10^3/ul (0-0.8); ABS Neutrophils 5.5 10^3/ul (1.5-7.7); ABS Nucleated RBC 0 10^3/ul; Eosinophil % 3.4 %; Hematocrit 38 % (35-47); Hemoglobin 12.5 g/dl (12.0-16.0); Lymphocyte % 31.4 %; Mean Corpuscular HGB Conc 33 g/dl (31-36); Mean Corpuscular Hemoglobin 30 pg (27-31); Mean Corpuscular Volume 91 fL (80-97); Mean Platelet Volume 8.8 fL (7.4-10.4); Nucleated Red Blood Cells % 0.1; Platelet Count 307 10^3/ul (150-450); Red Blood Count 4.12 10^6/ul (4.00-5.40); Red Cell Distribution Width 14 % (10.5-15); White Blood Count 9.6 10^3/ul (3.5-10.8)
[2018-09-12 11:49] LABS: Albumin/Globulin Ratio 1.6 (1-3); BUN/Creatinine Ratio 15.1 (8-20); C Reactive Protein 3.88 mg/L (<8.01); Calcium 9.2 mg/dL (8.6-10.3); EGFR African American 102.1 (>60); EGFR Non-African American 84.4 (>60); Globulin 2.5 g/dL (2-4); Magnesium 1.8 mg/dL (1.9-2.7); Potassium 3.9 mmol/L (3.5-5.0); Total Bilirubin 1.1 mg/dL (0.2-1.0); Total Protein 6.5 g/dL (6.4-8.9)
[2018-09-12 12:24] LABS: Urine Appearance Clear; Urine Bilirubin Negative (Negative); Urine Blood Negative (Negative); Urine Color Colorless; Urine Glucose Negative (Negative); Urine Ketones Negative (Negative); Urine Nitrite Negative (Negative); Urine Protein Negative (Negative); Urine Specific Gravity 1.002 (1.010-1.030); Urine Urobilinogen Negative (Negative)
[2018-09-12] MEDS ORDERED: Magnesium Sulfate 1 GM IV* 1 GM/100 ML BAG IV ONE (13:05)
[2018-09-12 15:34] VITALS: BP 130/70
== END 2018-09-12 15:34 | disposition home or self-care (01) ==
LOC: ED 10:29
DX: E83.42 Hypomagnesemia (principal); E86.0 Dehydration; G43.909 Migraine, unspecified, not intractable, without status migrainosus; R10.11 Right upper quadrant pain; K76.0 Fatty (change of) liver, not elsewhere classified; R00.1 Bradycardia, unspecified; I10 Essential (primary) hypertension; Z87.442 Personal history of urinary calculi; Z87.440 Personal history of urinary (tract) infections; Z88.8 Allergy status to other drugs, medicaments and biological substances; Z88.1 Allergy status to other antibiotic agents; Z91.041 Radiographic dye allergy status; Z91.013 Allergy to seafood; Z82.49 Family history of ischemic heart disease and other diseases of the circulatory system; Z83.3 Family history of diabetes mellitus
CPT/HCPCS: 36415; 76705; 80053; 81003; 83605; 83690; 83735; 85025; 86140; 93005; 96365; 99282; A9270-GY; J3475

== ENCOUNTER → 2018-12-28 09:29 | Emergency (ER) | payer OTHER ==
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
[2018-12-28 11:23] VITALS: BP 133/72
== END | disposition home or self-care (01) ==
LOC: ED 09:29
DX: S52.021A Displaced fracture of olecranon process without intraarticular extension of right ulna, initial encounter for closed fracture (principal); V19.3XXA Pedal cyclist (driver) (passenger) injured in unspecified nontraffic accident, initial encounter; Y93.55 Activity, bike riding; Z91.041 Radiographic dye allergy status
CPT/HCPCS: 99282